=== PATIENT | female | born 1980 | race Caucasian/White ===

== ENCOUNTER 2023-11-11 06:00 | Outpatient (CLI) | payer BC, SELFPAY | END 2023-11-11 06:01 | disposition home or self-care (01) | LOC: RAD 12-04 09:47 | PROVIDERS: PCP Nurse Practitioner Family; Visit Provider Nurse Practitioner Family | DX: E55.9 Vitamin D deficiency, unspecified (principal); R10.2 Pelvic and perineal pain; M25.50 Pain in unspecified joint; R73.9 Hyperglycemia, unspecified; Z13.6 Encounter for screening for cardiovascular disorders | CPT/HCPCS: 80053; 80061; 81003; 82306; 82607; 83036; 83735; 84439; 84443; 84481; 84550; 85025; 85651; 86038; 86140; 86200; 86431; 87086 ==

== ENCOUNTER 2023-12-14 16:18 | Outpatient (CLI) | payer BC, SELFPAY ==
--- NOTE | 2023-12-14 16:22 | USR_ITS ---
PROCEDURE INFORMATION: Exam: US Pelvis, Complete, Non-Obstetric Exam date and time: 12/14/2023 4:30 PM Age: 43 years old Clinical indication: Pelvic and perineal pain TECHNIQUE: Imaging protocol: Transabdominal pelvic nonobstetric ultrasound. Complete exam. Real time ultrasound with image documentation. COMPARISON: No relevant prior studies available. FINDINGS: Uterus: Uterus is normal. Endometrial stripe is normal and measures 11 mm. Right ovary/adnexa: Ovary is normal. No mass. Normal blood flow. Left ovary/adnexa: Ovary is normal. No mass. Normal blood flow. Intraperitoneal space: No intraperitoneal fluid. Urinary bladder: Normal. US/US pelvic complete* [id number] IMPRESSION: No acute findings. Unremarkable pelvic ultrasound.
== END 2023-12-14 16:19 | disposition home or self-care (01) ==
LOC: RAD 16:18
PROVIDERS: PCP Nurse Practitioner Family; Visit Provider Nurse Practitioner Family
DX: R10.2 Pelvic and perineal pain (principal)
CPT/HCPCS: 76856

== ENCOUNTER → 2023-12-17 16:56 | Outpatient (BNVA) | payer BC, SELFPAY | PROVIDERS: PCP Nurse Practitioner Family; Referring Provider Nurse Practitioner Family; Visit Provider Nurse Practitioner Women's Health | DX: Z01.419 Encounter for gynecological examination (general) (routine) without abnormal findings (principal) | CPT/HCPCS: 82670; 83001; 83002; 84144 ==

== ENCOUNTER → 2024-02-10 13:10 | Outpatient (BNVA) | payer BC, SELFPAY | PROVIDERS: PCP Nurse Practitioner Family; Visit Provider Obstetrics & Gynecology | DX: N90.7 Vulvar cyst (principal) | CPT/HCPCS: 88305 ==

== ENCOUNTER → 2024-09-26 15:09 | Outpatient (BNVA) | payer BC, SELFPAY | PROVIDERS: Family Provider Nurse Practitioner Family; PCP Nurse Practitioner Family; Visit Provider Nurse Practitioner Family | DX: R11.0 Nausea (principal) | CPT/HCPCS: 86003; 86008 ==

== ENCOUNTER → 2024-11-21 12:44 | Outpatient (BNVA) | payer BC, SELFPAY | PROVIDERS: Family Provider Nurse Practitioner Family; PCP Nurse Practitioner Family; Visit Provider Nurse Practitioner Family | DX: R73.9 Hyperglycemia, unspecified (principal); E55.9 Vitamin D deficiency, unspecified; G43.909 Migraine, unspecified, not intractable, without status migrainosus | CPT/HCPCS: 80053; 80061; 82306; 82607; 83036; 83735; 84439; 84443; 85025 ==

== ENCOUNTER 2024-11-25 13:34 | Outpatient (CLI) | payer BC, SELFPAY ==
--- NOTE | 2024-11-25 13:41 | XR_ITS ---
WS: [id number] Exam: XR cervical spine 3V* [id number] Date/Time of Exam: 11/25/2024 1:41 PM Reason For Exam: M54.2 - Cervicalgia DLP: No fracture or malalignment. There is straightening. Mild spondylosis at C5-6. Disc spaces are preserved. Posterior elements are intact. Normal paraspinal soft tissues. The dens is intact. XR/XR cervical spine 3V* [id number] IMPRESSION: 1. Straightening. No fracture or malalignment.
== END 2024-11-25 13:35 | disposition home or self-care (01) ==
PROVIDERS: PCP Nurse Practitioner Family; Visit Provider Nurse Practitioner Family
DX: M54.2 Cervicalgia (principal); G43.909 Migraine, unspecified, not intractable, without status migrainosus
CPT/HCPCS: 72040